=== PATIENT | female | born 1950 | race Caucasian/White ===

== ENCOUNTER 2016-07-17 15:39 | Outpatient (CLI) | payer OTHER ==
[2016-07-17 16:14] VITALS: BMI 27.4
== END 2016-07-17 15:40 ==
LOC: AMBL 15:39
PROVIDERS: ATTEND Emergency Medicine
DX: R10.30 Lower abdominal pain, unspecified (principal); V43.62XA Car passenger injured in collision with other type car in traffic accident, initial encounter

== ENCOUNTER 2016-07-17 16:04 | Emergency (ER) | payer OTHER ==
[2016-07-17 16:14] VITALS: BP 142/71; TEMP 98.4; BMI 27.4
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
[2016-07-17 17:09] LABS: BILIRUBIN,URINE Negative (NEGATIVE); KETONES,URINE Negative (NEGATIVE); LEUKOCYTE ESTERASE ,URINE Negative (NEGATIVE); NITRITE,URINE Negative (NEGATIVE); PH,URINE 5.5 (5-9); PROTEIN,URINE Negative (NEGATIVE); URINE, BLOOD Trace-intact (NEGATIVE)
[2016-07-17 17:11] LABS: ADD URINE MICROSCOPIC YES; BACTERIA,URINE TRACE (NOT PRESENT)
[2016-07-17 17:37] LABS: BASOPHILS % (AUTO) 0.3 % (0.0-3.0); EOSINOPHILS # (AUTO) 0.1 K/ul (0.0-0.7); EOSINOPHILS % (AUTO) 0.7 % (0.0-7.0); HEMATOCRIT 42.5 % (37.0-47.0); HEMOGLOBIN 14.6 g/dl (12.0-16.0); IMMATURE GRANULOCYTE % (AUTO) 0.3 % (0.0-5.0); LYMPHOCYTES # (AUTO) 0.9 K/uL (0.60-3.4); LYMPHOCYTES % (AUTO) 13.3 (10.0-50.0); MEAN CORPUSCULAR HGB CONC 34.4 (31.8-35.4); MEAN CORPUSCULAR VOLUME 87.3 fl (81.0-99.0); MONOCYTES # (AUTO) 0.8 K/uL (0.4-2.0); MONOCYTES % (AUTO) 11.4 (0-10); NEUTROPHILS # (AUTO) 5.1 K/ul (2.0-6.9); PLATELET COUNT 246 10^3/uL (140-440); RED BLOOD COUNT 4.87 10^6/ul (4.20-5.40); WHITE BLOOD COUNT 6.85 K/ul (4.6-10.2)
[2016-07-17 17:53] LABS: ALBUMIN/GLOBULIN RATIO 1.25; ANION GAP 11.5; BILIRUBIN,TOTAL 0.48 mg/dL (0.00-1.20); BUN/CREATININE RATIO 12.16; CALCIUM 9.8 mg/dL (8.2-10.2); CREATININE 1.48 mg/dL (0.60-1.30); POTASSIUM 4.5 mmol/L (3.5-5.10); TOTAL PROTEIN 7.2 g/dL (5.8-8.1)
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
== END 2016-07-17 19:15 | disposition home or self-care (01) ==
LOC: ED 16:04
DX: S40.011A Contusion of right shoulder, initial encounter (principal); R10.30 Lower abdominal pain, unspecified; M54.5 Low back pain; R52 Pain, unspecified; V43.62XA Car passenger injured in collision with other type car in traffic accident, initial encounter; Z79.01 Long term (current) use of anticoagulants; Z79.899 Other long term (current) drug therapy
CPT/HCPCS: 36415; 80053; 81001; 85025; 99283